=== PATIENT | female | born 1965 | race Caucasian/White ===

== ENCOUNTER 2024-10-14 11:08 | Emergency (ER) | payer MEDICAID ==
[2024-10-14] MEDS: Acetaminophen/HYDROcodone 325-5 MG Tab PO ONE (12:50)
== END 2024-10-14 13:30 | disposition home or self-care (01) ==
LOC: JD.ED 11:08
DX: S93.402A Sprain of unspecified ligament of left ankle, initial encounter (principal); M54.50 Low back pain, unspecified; M25.551 Pain in right hip; Z88.6 Allergy status to analgesic agent; Z88.8 Allergy status to other drugs, medicaments and biological substances; F17.210 Nicotine dependence, cigarettes, uncomplicated; W01.0XXA Fall on same level from slipping, tripping and stumbling without subsequent striking against object, initial encounter; Y93.89 Activity, other specified
CPT/HCPCS: 72100; 73502; 73610; 99283; A9270; J7512